=== PATIENT | male | born 1975 | race Caucasian/White ===

== ENCOUNTER 2016-08-21 17:09 | Inpatient (IN) | payer OTHER ==
[~2016-08-21] VITALS: Ht 180.3 cm; Wt 67.6 kg
[2016-08-21 17:10] VITALS: BP 94/69; PULSE 86; RESP 19; TEMP 96.9; O2SAT 97
--- NOTE | 2016-08-21 17:10 | NUR ---
BROUGHT IN BY ACLS JOS Singh AND NETTA CHILD, PLACED IN BED #1 AND TRIAGED. REPORT GIVEN TO MAHESH. DR ESCUDERO AT BEDSIDE UPON ARRIVAL
--- NOTE | 2016-08-21 17:10 | NUR ---
PER MEDICS, PT HAD A SEIZURE AT HOME AND WAS TAKEN TO [facility], WORKED-UP, AND RELEASED. PT WENT HOME AND HAD SEIZURE IN SHOWER, [facility] PT IS POST ICTAL AND ACTIVELY VOMITING
[2016-08-21] MEDS ORDERED: LORazepam 2 MG/ML VIAL IVP ONE (17:15)
--- NOTE | 2016-08-21 17:15 | NUR ---
ER at bedside examining patient.
--- NOTE | 2016-08-21 17:16 | NUR ---
Pt bib CF c/o seizure activity, pt has vomiting. IV established by CF was pulled out by pt. Pt h/o seizures. Pt AAOx2 . will reestablish IV accesss for medication.
--- NOTE | 2016-08-21 17:18 | NUR ---
# 20 gauge angiocath placed to L hand. Use of asceptic technique. Opsite placed over site. Blood return noted. Flushed with 10 cc of normal saline. No evidence of infiltration noted. Patient tolerated well.
[2016-08-21] MEDS ORDERED: ONDANSETRON HCL 4 MG/2 ML VIAL IVP ONE (17:30)
[2016-08-21] MEDS ORDERED: NACL 0.9% 1,000 ML IV ONE (17:30)
--- NOTE | 2016-08-21 17:30 | NUR ---
Pt tolerated medication for seizure and n/v. Pt tolerated well.
[2016-08-21] MEDS ORDERED: LORazepam 2 MG/ML VIAL (FOR ER USE) ONE (17:33)
[2016-08-21 18:16] LABS: BASOPHILS # (AUTO) 0.1 K/uL (0.0-0.2); BASOPHILS % (AUTO) 0.6 % (0.0-2.0); EOSINOPHILS % (AUTO) 0.3 % (0.0-4.0); HEMATOCRIT 42.6 % (36-54); LYMPHOCYTES # (AUTO) 1.5 K/uL (1.0-5.5); LYMPHOCYTES % (AUTO) 11.7 % (20.5-51.5); MEAN CORPUSCULAR HEMOGLOBIN 31 pg (27-31); MEAN CORPUSCULAR HGB CONC 33 % (32-36); MEAN CORPUSCULAR VOLUME 94 fL (79.0-98.0); MONOCYTES # (AUTO) 0.4 K/uL (0.0-1.0); MONOCYTES % (AUTO) 2.8 % (1.7-9.3); NEUTROPHILS # (AUTO) 11.1 K/uL (1.8-7.7); NEUTROPHILS % (AUTO) 84.6 % (40.0-70.0); PLATELET COUNT (AUTO) 208 K/uL (130-430); RED BLOOD CELL COUNT(AUTO) 4.52 MIL/uL (4.2-6.2); RED CELL DISTRIBUTION WIDTH 12.8 % (9.0-15.0); WHITE BLOOD COUNT (AUTO) 13.1 K/uL (4.8-10.8)
--- NOTE | 2016-08-21 18:30 | NUR ---
No seizure activity noted. Pt's nausea and vomiting resolving. Continuing to monitor.
[2016-08-21 18:48] LABS: ANION GAP 12 (5-15); CALCIUM 9.1 mg/dL (8.4-11.0); CHLORIDE 103 mmol/L (98-107); GLUCOSE 138 mg/dL (70-99); SODIUM SERUM 140 mmol/L (136-145); UREA NITROGEN, BLOOD 14 mg/dL (8-21)
[2016-08-21 18:52] LABS: ALANINE AMINOTRANSFERASE 15 U/L (12-78); ALBUMIN 4.2 g/dL (3.4-4.8); ASPARTATE AMINOTRANSFERASE 17 U/L (10-37); GFR AFRICAN AMERICAN 86 mL/min (>90); SALICYLATE 2 mg/dL (3-30); TOTAL BILIRUBIN 0.4 mg/dL (0.0-1.0); TOTAL PROTEIN, SERUM 7.6 g/dL (6.4-8.3)
[2016-08-21 18:59] LABS: ACETAMINOPHEN < 1 ug/mL (1-30)
[2016-08-21 19:00] LABS: ALCOHOL, BLOOD < 3 mg/dL (<10)
[2016-08-21] MEDS ORDERED: LEVOFLOXACIN 500 MG/D5W 100 ML IV ONE (19:00)
[2016-08-21] MEDS ORDERED: metroNIDAZOLE 500 mg/NS 100 ML IV ONE ×2 (19:00→21:29)
--- NOTE | 2016-08-21 19:10 | NUR ---
Pt continues to have no seziure activity.
--- NOTE | 2016-08-21 19:12 | NUR ---
Pt endorsed to Boubacar KENDRICK.
--- NOTE | 2016-08-21 19:20 | NUR ---
Pt is sleeping in his bed. Pt states he is in no pain. Will continue to monitor. No other injuries or complaints mentioned/noted. VSS. No distress noted.
--- NOTE | 2016-08-21 20:07 | NUR ---
Niranjan schaefer in EDM - 08/21/16 at 2008 by YOBANI Patient will be admitted to care of Dr Wharton . Admitted to [facility] unit. Will go to room 135. . Summary report printed. Report given to Guera KENDRICK .
--- NOTE | 2016-08-21 20:14 | NUR ---
ADMISSION NOTE Received patient from ER via gurney. Patient admitted with diagnosis of colitis. Patient is awake, alert, oriented X 4. Patient oriented to hospital room, call light, toileting, pain management and safety-teach back done. Patient informed that melody will be his nurse and that their room number is 106a. Personal belongings checked and Belongings List documented. Call light within reach.
[2016-08-21 20:15] VITALS: BP 109/67; PULSE 90; RESP 20; TEMP 98; O2SAT 98
[2016-08-21] MEDS ORDERED: LORazepam 2 MG/ML VIAL IM PRN (20:15)
[2016-08-21] MEDS ORDERED: MORPHINE 2 MG/ML INJ. SYRINGE IVP PRN (20:15)
[2016-08-21] MEDS ORDERED: ACETAMINOPHEN 325 MG TABLET PO PRN (20:15)
--- NOTE | 2016-08-21 20:32 | NUR ---
CONSULTATION PAGED REASON FOR CONSULTATION:SEIZURES WAS CONSULT CALLED?Y PERSON WHO WAS NOTIFIED:RADHA CONSULTING PHYSICIAN:SHEELA ASTUDILLO CORRECTIONAL CORPORAL SPECIALTY:GI CORRECTIONAL CORPORAL PHONE NUMBER:[phone]
--- NOTE | 2016-08-21 20:34 | NUR ---
CONSULTATION PAGED REASON FOR CONSULTATION:SEIZURES WAS CONSULT CALLED?Y PERSON WHO WAS NOTIFIED:RADHA CONSULTING PHYSICIAN:BERNADETTE MITCHELL HOUSING MANAGEMENT OFFICER SPECIALTY:NEURO HOUSING MANAGEMENT OFFICER PHONE NUMBER:[phone]
[2016-08-21] MEDS: levETIRAcetam 500 MG in NS 100 ML IV SCH (21:59)
--- NOTE | 2016-08-21 22:00 | NUR ---
Rounds Patient is in stable condition. IV is on the left hand 20g running D5NS@100ml/he. Seizure pads are in place. Call light is within reach. Advised patient to use it whenever in need of assistance.
[2016-08-21] MEDS: D5NS 1,000 ML IV SCH (22:04)
--- NOTE | 2016-08-21 22:13 | NUR ---
Spoke with MD Spoke with Dr. Christy regarding diet order. MD stated to keep patient NPO until CT abdomen results are in and neuro consult has see the patient. Explained to the patient the reason why he is NPO. Patient verbalized understanding.
[2016-08-21 23:30] VITALS: BP 113/57; PULSE 92; RESP 17; TEMP 98.7; O2SAT 98
[2016-08-22] VITALS (9 sets, daily range): BP systolic 101–113; BP diastolic 53–69; PULSE 74–88; RESP 14–20; TEMP 97–99.5; O2SAT 92–100
--- NOTE | 2016-08-22 00:20 | NUR ---
Rounds patient is currently resting in bed. New IV started the right hand 22g, Patient tolerated well.
--- NOTE | 2016-08-22 02:30 | NUR ---
Rounds Patient is currently sleeping in bed. Call light is within reach.
--- NOTE | 2016-08-22 04:20 | NUR ---
Rounds Patient is sleeping in bed. New IV site started on the left hand 22g using aseptic technique. Patient tolerated well.
[2016-08-22] MEDS: metroNIDAZOLE 500 mg/NS 100 ML IV SCH ×3 (05:14→21:17)
--- NOTE | 2016-08-22 06:13 | NUR ---
Closing Note patient is currently sleeping in bed. IV is on the left hand 22g running D5NS@100. GI and neuro consults are still pending to see the patient. Will endorse the oncoming shift. Seizure pads are in place. Bed alarm is on. Call light is within reach.
--- NOTE | 2016-08-22 07:00 | NUR ---
HANDOFF ROUNDS. PATIENT NEEDS MET AT THIS TIME. REQUEST FROM [facility] NURSE FOR DIET ORDER PATIENT SIGNED AMA IN PAST WITHOUT DIET ORDER.
--- NOTE | 2016-08-22 09:00 | NUR ---
PATIENT NOTIFIED KEPPRA IV UP AT THIS TIME TO PREVENT SEIZURES. VERBALIZES UNDERSTANDING. ROOMATE IS SEATED IN CHAIR NEXT TO PATIENT EATING HAMBURGER AND TAMAZIGHT FRIES.
--- NOTE | 2016-08-22 09:06 | NUR ---
CONSULTS CONSULT #1: GI CONSULT Spoke with Latonia regarding request for consultation with Dr. Garay ([phone]) for reason: abdominal pain. CONSULT #2: NEURO CONSULT Spoke with Lorenza regarding request for consultation with Dr. Wilson ([phone]) for reason: seizures.
--- NOTE | 2016-08-22 10:00 | NUR ---
PATIENT ROUNDS. HAND OVER HEAD WITH BLANKET COVERING FACE. DOES NOT RESPOND TO CURRENT QUESTIONS. WILL CONTINUE TO MONITOR FOR NEEDS.
--- NOTE | 2016-08-22 12:45 | NUR ---
CALL TO DOCTOR PAYNE SERVICE FOR DIET ORDER PATIENT CT AND XRAY ARE POSITIVE FOR KIDNEY STONE AND STOOL. SPOUSE SAYS HE WILL LIKELY GO AMA.
--- NOTE | 2016-08-22 13:05 | NUR ---
CALL TO DOCTOR SHORTY ANSWERING SERVICE PATIENT SPOUSE DISCUSSING PATIENT LEAVING AMA. REQUESTS DIET ORDER.
[2016-08-22] MEDS: HYDROmorphone 1 MG INJ. 1 MG/ML AMPUL IVP PRN ×2 (13:27→18:57)
--- NOTE | 2016-08-22 14:04 | NUR ---
GIVEN PRN DILAUDED FOR BACK PAIN. SAYS HE FELL YESTERDAY IN BATHROOM WHEN A SEIZURE OCCURRED PRIOR TO ARRIVING IN [facility] ER.
[2016-08-22] MEDS: D5NS 1,000 ML IV SCH (14:40)
[2016-08-22] MEDS: levETIRAcetam 500 MG in NS 100 ML IV SCH (14:40)
[2016-08-22] MEDS: ONDANSETRON HCL 4 MG/2 ML VIAL IVP PRN (14:44)
[2016-08-22] MEDS: LEVOFLOXACIN 500 MG/D5W 100 ML IV SCH (20:00)
--- NOTE | 2016-08-22 20:00 | NUR ---
opening note received patient resting in bed. abd pain noted. pt says doesn't want pain med because pain med doesn't work for stomach. side rails padded for seizure precautions. iv to left hand d5ns @ 100ml/h. comm board updated. poc discussed. pt not happy with comm between doctors. say one doctor tells one thin and another tells him another. re-assured pt re: pt's primary and gi doctors poc.
[2016-08-22] MEDS: LACTOBACILLUS RHAMNOSUS GG 1 CAP CAPSULE PO SCH (21:00)
[2016-08-22] MEDS: levETIRAcetam 500 MG TABLET PO SCH (21:11)
--- NOTE | 2016-08-22 21:20 | NUR ---
PT REFUSING IV ANTIBIOTICS SAYS THE DOCTORS NEED TO COMMUNICATE WITH EACH OTHER BECAUSE GI DR SAID HE DOESN'T KNOW WHY HE IS ON IV ANTIBIOTICS-ACCORDING TO PT. PT HAS LEFT SIDE PAIN BUT SAYS PAIN MEDICATION DOESN'T WORK FOR IT. OFFERED PAIN MED BUT SAYS IT ONLY WORKS FOR BACK AND HIS BACK IS FINE.
[2016-08-23 00:27] VITALS: BP 126/82; PULSE 78; RESP 18; TEMP 98.4; O2SAT 97
[2016-08-23] MEDS: ONDANSETRON HCL 4 MG/2 ML VIAL IVP PRN ×3 (00:57→20:06)
[2016-08-23] MEDS: D5NS 1,000 ML IV SCH ×3 (01:06→21:32)
--- NOTE | 2016-08-23 01:08 | NUR ---
nausea pt given zofran as ordered for nausea. will continue to monitor and reassess.
[2016-08-23] MEDS: HYDROmorphone 1 MG INJ. 1 MG/ML AMPUL IVP PRN ×4 (02:05→21:31)
--- NOTE | 2016-08-23 02:08 | NUR ---
pain pt given pain med for 810 left side abdominal pain. pt educated on fall risks. call light at side. will reassess and continue to monitor.
--- NOTE | 2016-08-23 02:19 | NUR ---
rounds pt not tolerating liquids. nausea medication has been given.
--- NOTE | 2016-08-23 04:30 | NUR ---
ROUNDS PATIENT APPEARS TO BE SLEEPING. RESPIRATIONS EVEN AND UNLABORED. NO MOANING OR FACIAL GRIMACING NOTED FOR PAIN. WILL CONTINUE TO MONITOR.
[2016-08-23 04:35] VITALS: BP 118/76; PULSE 68; RESP 18; TEMP 98.2; O2SAT 97
--- NOTE | 2016-08-23 08:00 | NUR ---
RECEIVED PATIENT ALERT AWAKE N/V 30CC BROWN EMESIS, COMPLAINT OF PAIN 8/10 ON LEFT SIDE OF ABDOMEN GAVE DILAUDID PRESCRIBED, PATIENT LYING ON LEFT SIDE, ABDOMEN SOFT NONDISTENDED, SPOKE WITH ON PHONE ABOUT CARE, PATIENT BED IN LOW POSITION CALL LIGHT IN APLCE SIDE RAILS UP
[2016-08-23] MEDS: levETIRAcetam 500 MG TABLET PO SCH ×2 (08:21→21:25)
[2016-08-23] MEDS: LACTOBACILLUS RHAMNOSUS GG 1 CAP CAPSULE PO SCH ×2 (08:21→21:25)
--- NOTE | 2016-08-23 11:30 | NUR ---
PATIENT ALERT AND ORIENTED X 4, COMPLAINT OF PAIN 4/10 WITH SMALL AMOUNT OF EMESIS IN [place], GAVE ZOFRAN PRESCRIBED, INFORMED DR GOMEZ THAT PATIENT STILL IN PAIN AND NAUSEATED, DR GOMEZ ORDERED A KUB OF ABDOMEN, CONSULT FOR ABDOMEN AND BLOOD APNEL DRAW, CURRENTYLY PATIENT LYING ON LEFT SIDE SUPINE, BED IN LOW POSITION CALL LIGHT IN APCKLE SIDE RAILS UP
[2016-08-23] MEDS: LORazepam 2 MG/ML VIAL IVP PRN ×2 (11:45→20:06)
[2016-08-23 11:56] LABS: BASOPHILS % (AUTO) 0.4 % (0.0-2.0); EOSINOPHILS % (AUTO) 0.4 % (0.0-4.0); HEMATOCRIT 40.4 % (36-54); HEMOGLOBIN 13.7 g/dL (14.0-18.0); LYMPHOCYTES # (AUTO) 1.5 K/uL (1.0-5.5); LYMPHOCYTES % (AUTO) 13.5 % (20.5-51.5); MEAN CORPUSCULAR HEMOGLOBIN 32 pg (27-31); MEAN CORPUSCULAR HGB CONC 34 % (32-36); MEAN CORPUSCULAR VOLUME 93 fL (79.0-98.0); MONOCYTES # (AUTO) 0.7 K/uL (0.0-1.0); MONOCYTES % (AUTO) 6.2 % (1.7-9.3); NEUTROPHILS # (AUTO) 9.1 K/uL (1.8-7.7); NEUTROPHILS % (AUTO) 79.5 % (40.0-70.0); PLATELET COUNT (AUTO) 194 K/uL (130-430); RED BLOOD CELL COUNT(AUTO) 4.34 MIL/uL (4.2-6.2); RED CELL DISTRIBUTION WIDTH 12.2 % (9.0-15.0); WHITE BLOOD COUNT (AUTO) 11.3 K/uL (4.8-10.8)
[2016-08-23 12:03] LABS: CALCIUM 8.8 mg/dL (8.4-11.0); CREATININE 0.91 mg/dL (0.55-1.30); POTASSIUM 3.3 mmol/L (3.5-5.1)
[2016-08-23 12:08] LABS: ALBUMIN 4.1 g/dL (3.4-4.8); TOTAL BILIRUBIN 0.9 mg/dL (0.0-1.0); TOTAL PROTEIN, SERUM 7.3 g/dL (6.4-8.3)
[2016-08-23 12:12] VITALS: BP 113/72; PULSE 89; RESP 18; TEMP 97.9; O2SAT 99
--- NOTE | 2016-08-23 12:56 | NUR ---
surgery consult spoke to Genaro, office of Dr. Lloyd and made aware of consult.
[2016-08-23] MEDS: metroNIDAZOLE 500 mg/NS 100 ML IV SCH ×2 (14:45→21:26)
--- NOTE | 2016-08-23 14:50 | NUR ---
CONSULT CALLED REASON FOR CONSULTATION: ABDOMINAL PAIN WAS CONSULT CALLED: Y PERSON WHO WAS NOTIFIED: SELENA CONSULTING PHYSICIAN; SHAYNA GARCIA MD ORDER BY: CHELSEY GOMEZ MD
[2016-08-23] MEDS ORDERED: POTASSIUM CHLORIDE 20 MEQ TAB.PRT.SR PO ONE (15:30)
[2016-08-23 16:51] VITALS: BP 109/62; PULSE 59; RESP 16; TEMP 98.2; O2SAT 99
--- NOTE | 2016-08-23 17:23 | NUR ---
PATIENT SLEEPING EASILY AROUSABLE, NOS IGN OF DISTRESS OR SOB, PATIENT WANTS TO SLEEP, CLOSED DOOR FOR TO HELP WITH NOISE, LYING SUPINE BED IN LOW POSITION CALL LIGHT IN APLCE SIDE RAILS UP, GAVE POTASSIUM 40MEQ PRESCRIBED FOR K+ 3.3
--- NOTE | 2016-08-23 19:35 | NUR ---
INITIAL ASSESSMENT: RECEIVE PT IN BED, PATIENT ALERT AND ORIENTED X 4, COMPLAINT OF PAIN 4/10 WITH SMALL AMOUNT OF EMESIS IN [place], DENIES ANY DISTRESS, PT ON ROOM AIR, VITAL STABLE, CHEST CLEAR, ABDOMEN SOFT AND NON DISTENDED, ACTIVE BOWEL SOUND THROUGHOUT ABDOMEN, PT HAS IV ON LEFT HAND 20 G, INFUSING D5NS@ 100 CC/HR, INFUSING WELL, NO INFILTRATION NOTED, PATIENT LYING ON LEFT SIDE , BED IN LOW POSITION CALL LIGHT IN REACH, PADDED SIDE RAIL. ALL NEEDS ATTENDED, WILL CONTINUE TO MONITOR.
[2016-08-23 20:00] VITALS: BP 112/67; PULSE 57; RESP 16; TEMP 98.3; O2SAT 98
[2016-08-23] MEDS: LEVOFLOXACIN 500 MG/D5W 100 ML IV SCH (20:07)
--- NOTE | 2016-08-23 20:10 | NUR ---
ATIVAN, ZOFRAN: PATIENT ALERT AND ORIENTED X 4, COMPLAINT OF PAIN 4/10 WITH SMALL AMOUNT OF EMESIS IN [place], C/O ANXIETY AND CRYING ON SIDE OF BED, VOMITING, ADMINISTERED ATIVAN 1 MG IVP AND ZOFRAN IVP FOR NAUSEA, WILL REASSESS. PT ON ROOM AIR, VITAL STABLE, CHEST CLEAR, BREATHING EVEN AND NON LABORED WITH ROOM AIR, PT HAS IV ON LEFT HAND 20 G, INFUSING D5NS@ 100 CC/HR, INFUSING WELL, NO INFILTRATION NOTED, PADDED SIDE RAIL. ALL NEEDS ATTENDED, CALL LIGHT WITH IN REACH, WILL CONTINUE TO MONITOR.
--- NOTE | 2016-08-23 21:31 | NUR ---
DILAUDID: PATIENT ALERT AND ORIENTED X 4, COMPLAINT OF PAIN 7/10 WITH SMALL AMOUNT OF EMESIS IN [place], ADMINISTERED DILAUDID 1 MG IVP, WILL REASSESS. EDUCATED PT TO NOT TO GET OUT OF BED WITH OUT NURSE THERE, ADMINISTERED ALL SCHEDULE MEDICATION, PT ON ROOM AIR, VITAL STABLE, CHEST CLEAR, BREATHING EVEN AND NON LABORED WITH ROOM AIR, PT HAS IV ON LEFT HAND 20 G, INFUSING D5NS@ 100 CC/HR, INFUSING WELL, NO INFILTRATION NOTED, PADDED SIDE RAIL. ALL NEEDS ATTENDED, CALL LIGHT WITH IN REACH, WILL CONTINUE TO MONITOR.
--- NOTE | 2016-08-23 23:31 | NUR ---
PT SLEEPING: PT SLEEPING, EASILY AWAKE, NO NOTED PAIN AND DISTRESS, PT ON ROOM AIR, VITAL STABLE, CHEST CLEAR, BREATHING EVEN AND NON LABORED WITH ROOM AIR, PT HAS IV ON LEFT HAND 20 G, INFUSING D5NS@ 100 CC/HR, INFUSING WELL, NO INFILTRATION NOTED, PADDED SIDE RAIL. NO SEIZURE ACTIVITY SINCE HOSPITALIZATION. ALL NEEDS ATTENDED, CALL LIGHT WITH IN REACH, WILL CONTINUE TO MONITOR.
[2016-08-24] VITALS (9 sets, daily range): BP systolic 107–135; BP diastolic 67–78; PULSE 58–80; RESP 16–18; TEMP 96.9–99.3; O2SAT 93–100
[2016-08-24] MEDS: LORazepam 2 MG/ML VIAL IVP PRN ×3 (01:46→18:20)
[2016-08-24] MEDS: ONDANSETRON HCL 4 MG/2 ML VIAL IVP PRN ×4 (01:46→20:22)
[2016-08-24] MEDS: HYDROmorphone 1 MG INJ. 1 MG/ML AMPUL IVP PRN ×4 (01:47→20:23)
--- NOTE | 2016-08-24 01:48 | NUR ---
PT C/O PAIN 8/10 ON LEFT ABDOMEN, ADMINISTERED DILAUDID 1 MG IVP, VERY ANXIOUS AND AGITATED AND CRYING, ADMINISTERED ATIVAN 1 MG IVP AND ZOFRAN IVP FOR NAUSEA AND VOVITING, I=VF INFUSING WELL, VITAL STABLE, ALL NEEDS ATTENDED, SAFETY EDUCATION DONE, BED ALARM ON, CALL LIGHT WITH IN REACH, WILL CONTINUE TO MONITOR.
[2016-08-24] MEDS: metroNIDAZOLE 500 mg/NS 100 ML IV SCH ×3 (05:41→23:12)
--- NOTE | 2016-08-24 06:39 | NUR ---
CLOSING NOTE: PT SLEEPING, EASILY AWAKE, NO NOTED PAIN AND DISTRESS, PT ON ROOM AIR, VITAL STABLE, CHEST CLEAR, BREATHING EVEN AND NON LABORED WITH ROOM AIR, PT HAS IV ON LEFT HAND 20 G, INFUSING D5NS@ 100 CC/HR, INFUSING WELL, NO INFILTRATION NOTED, PADDED SIDE RAIL. NO SEIZURE ACTIVITY SINCE HOSPITALIZATION. ALL NEEDS ATTENDED THROUGHOUT SHIFT, CALL LIGHT WITH IN REACH, WILL ENDORSE TO AM NURSE.
[2016-08-24 07:41] LABS: ALBUMIN 3.7 g/dL (3.4-4.8); CALCIUM 8.5 mg/dL (8.4-11.0); CREATININE 0.92 mg/dL (0.55-1.30); POTASSIUM 3.6 mmol/L (3.5-5.1); TOTAL PROTEIN, SERUM 6.5 g/dL (6.4-8.3)
--- NOTE | 2016-08-24 08:00 | NUR ---
0800 Medicated with Dilaudid 2 mg IVP for abdominal pain, patient still nauseated Zofran given as scheduled.
[2016-08-24 08:09] LABS: BASOPHILS % (AUTO) 0.3 % (0.0-2.0); EOSINOPHILS # (AUTO) 0.1 K/uL (0.0-0.4); EOSINOPHILS % (AUTO) 0.8 % (0.0-4.0); HEMATOCRIT 37.3 % (36-54); HEMOGLOBIN 12.6 g/dL (14.0-18.0); LYMPHOCYTES # (AUTO) 2.5 K/uL (1.0-5.5); LYMPHOCYTES % (AUTO) 22.3 % (20.5-51.5); MEAN CORPUSCULAR HEMOGLOBIN 32 pg (27-31); MEAN CORPUSCULAR HGB CONC 34 % (32-36); MONOCYTES # (AUTO) 0.7 K/uL (0.0-1.0); MONOCYTES % (AUTO) 6.4 % (1.7-9.3); NEUTROPHILS # (AUTO) 7.8 K/uL (1.8-7.7); NEUTROPHILS % (AUTO) 70.2 % (40.0-70.0); PLATELET COUNT (AUTO) 175 K/uL (130-430); RED BLOOD CELL COUNT(AUTO) 3.94 MIL/uL (4.2-6.2); RED CELL DISTRIBUTION WIDTH 12.4 % (9.0-15.0); WHITE BLOOD COUNT (AUTO) 11.1 K/uL (4.8-10.8)
[2016-08-24] MEDS ORDERED: NACL 0.9% 1,000 ML IV ONE (08:15)
[2016-08-24 08:31] LABS: MEAN CORPUSCULAR VOLUME 95 fL (79.0-98.0)
[2016-08-24] MEDS: levETIRAcetam 500 MG TABLET PO SCH (09:39)
[2016-08-24] MEDS: LACTOBACILLUS RHAMNOSUS GG 1 CAP CAPSULE PO SCH ×2 (09:39→20:23)
--- NOTE | 2016-08-24 09:45 | NUR ---
Called Dr. Rossi for medication question (Reglan)
[2016-08-24] MEDS ORDERED: METOCLOPRAMIDE HCL 10 MG/2 ML VIAL IVP SCH (11:00)
--- NOTE | 2016-08-24 12:35 | NUR ---
Patient given Reglan IVP to control Nausea and vomiting in addition to ZOFRAN .
[2016-08-24] MEDS: METOCLOPRAMIDE HCL 10 MG/2 ML VIAL IVP PRN (12:39)
--- NOTE | 2016-08-24 13:51 | NUR ---
MD ROUNDS DR. DINERO HERE AND OKAYED TO CHANGED KEPPRA IV TO PO. PT STILL HAVING EPISODES OF VOMITING.
[2016-08-24] MEDS ORDERED: COMMUNICATION ORDER XX ONE (14:00)
--- NOTE | 2016-08-24 14:00 | NUR ---
Dr. robledo made aware that patient requesting for IV Keppra due to frequent vomiting and nausea. Dose chaged to IVPB same dosage.
--- NOTE | 2016-08-24 14:34 | NUR ---
Medicated with Ativan 1 mg IVP for anxiety.
--- NOTE | 2016-08-24 16:29 | NUR ---
Patient complaining that he feels like passing out,BP taken 124/72 HR-78. Patient feeling hungry snacks given jello , apple sauce and gideon crackers given.
--- NOTE | 2016-08-24 18:00 | NUR ---
Patient at bedside . Patient resting in bed.
--- NOTE | 2016-08-24 20:00 | NUR ---
Initial Notes Received patient resting in bed, awake, alert, oriented, at bedside. Patient denies any acute distress. Vital signs stable. Breathing even and unlabored on room air. IV site to left hand, patent/clean/dry. Seizure precautions in place. Needs addressed. Educated patient and family on use of call light for assistance and fall precautions, both verbalized understanding. Patient complains of nausea and abdominal pain, medicated per MD order. Call light in hand, will continue to monitor.
[2016-08-24] MEDS: LEVOFLOXACIN 500 MG/D5W 100 ML IV SCH (20:22)
[2016-08-24] MEDS: levETIRAcetam 1,500 MG in NS 100 ML IV SCH (21:39)
--- NOTE | 2016-08-24 22:00 | NUR ---
Rounds Patient resting in bed with eyes closed, easily aroused, at bedside. Patient denies any acute distress or pain at this time. Breathing even and unlabored. IV site patent/clean/dry. Needs addressed. Call light in hand, will continue to monitor.
[2016-08-24] MEDS: D5NS 1,000 ML IV SCH (23:17)
--- NOTE | 2016-08-25 | NUR ---
Rounds Patient resting in bed, awake. Patient denies any acute distress or pain at this time. Breathing even and unlabored. IV site patent/clean/dry. Patient denies any needs. Call light in hand, will continue to monitor.
[2016-08-25] MEDS: METOCLOPRAMIDE HCL 10 MG/2 ML VIAL IVP PRN ×2 (00:28→21:40)
[2016-08-25] MEDS: HYDROmorphone 1 MG INJ. 1 MG/ML AMPUL IVP PRN ×4 (00:29→21:49)
[2016-08-25 00:31] VITALS: BP 118/67; PULSE 75; RESP 20; TEMP 97.8; O2SAT 95
[2016-08-25 03:49] VITALS: BP 127/79; PULSE 75; RESP 18; TEMP 99.4; O2SAT 97
--- NOTE | 2016-08-25 04:00 | NUR ---
Rounds Patient resting in bed with eyes closed. No acute distress noted, breathing even and unlabored. IV site patent/clean/dry. Call light in hand, will continue to monitor.
[2016-08-25] MEDS: ONDANSETRON HCL 4 MG/2 ML VIAL IVP PRN (04:35)
[2016-08-25] MEDS: metroNIDAZOLE 500 mg/NS 100 ML IV SCH ×3 (05:01→22:33)
--- NOTE | 2016-08-25 06:43 | NUR ---
Closing Notes Patient resting in bed with eyes closed, easily aroused. Denies any acute distress or pain at this time. Breathing even and unlabored on room air. IV site patent/clean/dry, no S/S infection/infiltration noted. Needs addressed throughout shift. Call light in hand, fall precautions in place. Will continue to monitor for changes and safety, and endorse all patient care/needs to oncoming nurse.
[2016-08-25 07:05] LABS: BASOPHILS # (AUTO) 0.1 K/uL (0.0-0.2); BASOPHILS % (AUTO) 1.4 % (0.0-2.0); EOSINOPHILS # (AUTO) 0.1 K/uL (0.0-0.4); EOSINOPHILS % (AUTO) 1.4 % (0.0-4.0); HEMATOCRIT 35.3 % (36-54); HEMOGLOBIN 12.4 g/dL (14.0-18.0); LYMPHOCYTES # (AUTO) 1.6 K/uL (1.0-5.5); LYMPHOCYTES % (AUTO) 21.9 % (20.5-51.5); MEAN CORPUSCULAR HEMOGLOBIN 32 pg (27-31); MEAN CORPUSCULAR HGB CONC 35 % (32-36); MEAN CORPUSCULAR VOLUME 92 fL (79.0-98.0); MONOCYTES # (AUTO) 0.7 K/uL (0.0-1.0); MONOCYTES % (AUTO) 8.9 % (1.7-9.3); NEUTROPHILS % (AUTO) 66.4 % (40.0-70.0); PLATELET COUNT (AUTO) 172 K/uL (130-430); RED BLOOD CELL COUNT(AUTO) 3.82 MIL/uL (4.2-6.2); RED CELL DISTRIBUTION WIDTH 11.9 % (9.0-15.0); WHITE BLOOD COUNT (AUTO) 7.5 K/uL (4.8-10.8)
[2016-08-25 07:14] LABS: ALBUMIN 3.5 g/dL (3.4-4.8); CALCIUM 8.3 mg/dL (8.4-11.0); CREATININE 0.95 mg/dL (0.55-1.30); POTASSIUM 3.7 mmol/L (3.5-5.1); TOTAL PROTEIN, SERUM 6.3 g/dL (6.4-8.3)
--- NOTE | 2016-08-25 07:59 | NUR ---
AM ROUNDS: Patient is complaining of pain. Will medicate as ordered. Will continue to monitor.
[2016-08-25 08:24] VITALS: BP 127/74; PULSE 76; RESP 20; TEMP 98.3; O2SAT 99
[2016-08-25] MEDS: LACTOBACILLUS RHAMNOSUS GG 1 CAP CAPSULE PO SCH ×2 (08:29→20:48)
[2016-08-25] MEDS: levETIRAcetam 1,500 MG in NS 100 ML IV SCH ×2 (08:29→20:48)
--- NOTE | 2016-08-25 09:52 | NUR ---
MD ROUNDS: Dr. Garay in to see patient.
--- NOTE | 2016-08-25 10:00 | NUR ---
OFF THE FLOOR: To GI Lab for EGD.
[2016-08-25] MEDS ORDERED: SIMETHICONE 40 MG/0.6 ML ML ONE (10:09)
[2016-08-25] MEDS: fentaNYL CITRATE/PF 100 MCG/2 ML AMP ONE ×4 (10:10→11:28)
[2016-08-25] MEDS: MIDAZOLAM HCL 5 MG/5 ML VIAL ONE ×4 (10:10→11:28)
[2016-08-25] MEDS: DIPHENHYDRAMINE INJ 50 MG/ML VIAL ONE ×2 (10:13→11:28)
[2016-08-25] MEDS ORDERED: MIDAZOLAM HCL 5 MG/5 ML VIAL ONE (10:16)
[2016-08-25] MEDS ORDERED: PANTOPRAZOLE SODIUM 40 MG TAB PO ONE (11:00)
--- NOTE | 2016-08-25 11:15 | NUR ---
PATIENT RETURNED: From GI Lab.
[2016-08-25 12:00] VITALS: BP 127/81; PULSE 74; RESP 20; TEMP 98.6; O2SAT 96
--- NOTE | 2016-08-25 12:52 | NUR ---
PATIENT RESTING: Patient resting quietly. No acute distress noted. Vital signs within normal range.
[2016-08-25] MEDS: D5NS 1,000 ML IV SCH (13:37)
[2016-08-25 16:00] VITALS: BP 131/72; PULSE 80; RESP 20; TEMP 98.8; O2SAT 98
--- NOTE | 2016-08-25 16:11 | NUR ---
PATIENT RESTING: Patient resting quietly. No acute distress noted. Vital signs within normal range.
--- NOTE | 2016-08-25 18:21 | NUR ---
PAGED: Dr. Rossi paged. Patient is demanding diet change.
--- NOTE | 2016-08-25 18:41 | NUR ---
PATIENT REFUSED MEAL: Dr. Rossi called back, ordered full liquid diet. Patient refused meal.
--- NOTE | 2016-08-25 20:03 | NUR ---
Opening Note Report received from Gamal KENDRICK. Patient is in stable condition. Refused to eat dinner. Will follow up with MD to advance diet. IV is on the left hand 22g running D5NS@100. Call light is within reach. Instructed to use it whenever in need of assistance. Seizure pads are in place.
[2016-08-25 20:30] VITALS: BP 128/75; PULSE 72; RESP 18; TEMP 99.2
[2016-08-25] MEDS: LEVOFLOXACIN 500 MG/D5W 100 ML IV SCH (20:47)
--- NOTE | 2016-08-25 22:03 | NUR ---
Spoke with MD Spoke with Dr. Christy. Explained to MD that patient is very upset regarding current diet order. Orders received to advance diet to soft.
[2016-08-26] VITALS: BP 105/61; PULSE 71; RESP 17; TEMP 98.3; O2SAT 95
--- NOTE | 2016-08-26 00:03 | NUR ---
Rounds Patient was complaining of abdominal pain. Medicated with Dilaudid 1mg. Also medicated with Reglan. Will reassess.
--- NOTE | 2016-08-26 02:15 | NUR ---
Rounds Patient is currently resting in bed. Call light is within reach.
[2016-08-26] MEDS: HYDROmorphone 1 MG INJ. 1 MG/ML AMPUL IVP PRN ×3 (03:21→12:14)
[2016-08-26 04:00] VITALS: BP 113/60; PULSE 70; RESP 17; TEMP 97.4; O2SAT 96
[2016-08-26] MEDS: ONDANSETRON HCL 4 MG/2 ML VIAL IVP PRN ×2 (04:06→12:14)
[2016-08-26] MEDS: D5NS 1,000 ML IV SCH (04:07)
--- NOTE | 2016-08-26 04:40 | NUR ---
Rounds Patient is currently resting in bed. Call light is within reach.
[2016-08-26] MEDS: metroNIDAZOLE 500 mg/NS 100 ML IV SCH ×2 (05:33→14:02)
--- NOTE | 2016-08-26 06:45 | NUR ---
Closing Note Patient is currently resting in bed. IV is on the left hand 22g running D5NS@100ml/hr. Call light is within reach. Seizure pads are on. Instructed to call for help whenever in need of assistance. Will give report to the oncoming nurse.
--- NOTE | 2016-08-26 07:45 | NUR ---
AM Notes Pt aaox4 with complaints of abdominal pain and nauseated. No distress noted. Informed RN for medication administration. No signs of seizure activity noted. Fall and safety precautions enforced. Seizure precautions enforced with padded rails in place. Kept comfortable. Will monitor.
[2016-08-26] MEDS: levETIRAcetam 1,500 MG in NS 100 ML IV SCH (08:06)
[2016-08-26] MEDS: METOCLOPRAMIDE HCL 10 MG/2 ML VIAL IVP PRN (08:06)
[2016-08-26 08:20] VITALS: BP 111/61; PULSE 65; RESP 18; TEMP 98.2; O2SAT 93
[2016-08-26] MEDS ORDERED: PANTOPRAZOLE SODIUM 40 MG TAB PO SCH (09:00)
--- NOTE | 2016-08-26 09:00 | NUR ---
Rounds Pt asleep. No signs of facial grimacing for pain or discomfort. No distress noted. Call light within reach. Will monitor.
--- NOTE | 2016-08-26 09:36 | NUR ---
Nutrition Update Andrew Scale 18 noted. Pt admitted for colitis. Diet: soft (low fiber/bland) BMI: 20.8 kg/m2 RD to follow per nutrition care standards.
--- NOTE | 2016-08-26 10:15 | NUR ---
Dr. Flo TOVAR doing rounds. Plan of care discussed with patient.
[2016-08-26] MEDS: LACTOBACILLUS RHAMNOSUS GG 1 CAP CAPSULE PO SCH (11:00)
--- NOTE | 2016-08-26 12:00 | NUR ---
Rounds Pt complaints of abdominal pain and feels very nauseated. Informed RN for medication administration. Pt refused to eat lunch.
[2016-08-26 12:15] VITALS: BP 109/66; PULSE 62; RESP 20; TEMP 97.9; O2SAT 98
--- NOTE | 2016-08-26 13:39 | NUR ---
CALLED JOHN TOVAR, DR PAYNE RE: DISCHARGE OK FOR HOME. SPOKE TO RADHA
--- NOTE | 2016-08-26 14:00 | NUR ---
Rounds Pt asleep. No signs of facial grimacing for pain or discomfort. No distress noted.
--- NOTE | 2016-08-26 15:00 | NUR ---
Dr. Garay Called and spoke with MD if patient is cleared to be discharged home. MD wants to have colonoscopy done but to ask patient if he is able to drink Golytely and to call him back.
--- NOTE | 2016-08-26 15:15 | NUR ---
Spoke to patient Spoke to patient and informed about Dr. Garay's plan for colonoscopy and if able to drink Golytely. Patient states he cannot drink Golytely because he is still throwing up and will not be able to keep it down. Pt becoming frustrated and impatient.
--- NOTE | 2016-08-26 15:36 | NUR ---
CALLED GI MD DR PAYNE, RE: THROWS UP WITH [employer],. SPOKE TO TYLER
[2016-08-26 15:39] VITALS: BP 107/56; PULSE 76; RESP 16; TEMP 98.4; O2SAT 99
--- NOTE | 2016-08-26 16:00 | NUR ---
Dr. Garay Called and informed MD that patient is unable to drink Golytely because he might just throw up. MD ordered to have HIDA Scan and not to discharge patient because he is still experiencing abdominal pain. Will inform patient.
--- NOTE | 2016-08-26 16:30 | NUR ---
Agitated Pt became upset, agitated and screaming to the top of his voice about not cleared to be discharged and HIDA Scan ordered. Explained and educated patient that HIDA Scan can clearly visualize the liver, gallbladder and pancreas. Pt states he refused to have it done and wants to be discharged. Also states "Why does this procedure need to be done now while i have been here for a week?" Calming measures done but patient still agitated. Charge nurse, Randa went in to speak with patient but continues to be upset and agitated. Oven Heater, Skyler made aware of situation.
--- NOTE | 2016-08-26 18:20 | NUR ---
AMA Patient left Against Medical Advice. Signed form. D/C IV and dressing applied. Pt left floor via w/c to private vehicle. No distress noted.
== END 2016-08-26 18:20 | disposition left against medical advice (07) | DRG 101 ==
LOC: SED 17:09 → SMU 19:26
PROVIDERS: ADMIT Internal Medicine Hospice and Palliative Medicine; ATTEND Internal Medicine Hospice and Palliative Medicine
PROC: 0DB68ZX Excision of Stomach, Via Natural or Artificial Opening Endoscopic, Diagnostic (ICD-10-PCS; 2016-08-25)
PROC: 0DB98ZX Excision of Duodenum, Via Natural or Artificial Opening Endoscopic, Diagnostic (ICD-10-PCS; principal; 2016-08-25 10:30)
DX: G40.409 Other generalized epilepsy and epileptic syndromes, not intractable, without status epilepticus (principal); K29.70 Gastritis, unspecified, without bleeding; K52.9 Noninfective gastroenteritis and colitis, unspecified; J45.909 Unspecified asthma, uncomplicated; F12.90 Cannabis use, unspecified, uncomplicated; Z53.21 Procedure and treatment not carried out due to patient leaving prior to being seen by health care provider; Z88.5 Allergy status to narcotic agent; Z90.49 Acquired absence of other specified parts of digestive tract
CPT/HCPCS: 36415; 43239; 70450-TC; 71010; 74000-TC; 76700-TC; 80053; 83605; 83690-TC; 84484; 85025; 85610-TC; 85730-TC; 87040-TC; 87081; 88305; 88312; 88313; 93005; 96365; 96367; 96375; 99285; G0480; G0481; G0482; J1170; J1200; J1953; J1956; J2060; J2250; J2405; J2765; J3010; J3490; J7030; J7042

== ENCOUNTER 2017-06-01 11:44 | Emergency (ER) | payer OTHER, MEDICAID ==
[~2017-06-01] VITALS: Ht 177.8 cm; Wt 70.3 kg
--- NOTE | 2017-06-01 11:44 | NUR ---
Pt brought to bed 1 by ACLS for witnessed seizure in bathtub. Daughter called 911 when she saw pt having a seizure in bathtub. Pt is awake and alert at this time with some confussion, but able to answer questions and knows who he is. Seizure pads were placed on rails. No noted trauma or deformities noted, pt denies loss of consciousness or hitting head. No other injuries/complaints per pt or noted.
[2017-06-01 11:54] VITALS: BP_SYST 145
[2017-06-01] MEDS ORDERED: LORazepam 2 MG/ML VIAL (FOR ER USE) IVP ONE (12:15)
--- NOTE | 2017-06-01 12:15 | NUR ---
ER at bedside examining patient.
--- NOTE | 2017-06-01 12:32 | NUR ---
Medicated per MD orders. VSS, will continue to monitor
[2017-06-01] MEDS ORDERED: ESLI400T PO (12:36)
[2017-06-01] MEDS ORDERED: LEVE500T13 PO (12:36)
--- NOTE | 2017-06-01 12:37 | NUR ---
Medication reconciliation completed with information provided by PATIENT. Any prior medication reconciliation on file was reviewed and corrected.
[2017-06-01 12:54] LABS: BASOPHILS # (AUTO) 0.1 K/uL (0.0-0.2); BASOPHILS % (AUTO) 0.8 % (0.0-2.0); EOSINOPHILS # (AUTO) 0.2 K/uL (0.0-0.4); EOSINOPHILS % (AUTO) 2.7 % (0.0-4.0); HEMATOCRIT 41.8 % (36-54); HEMOGLOBIN 13.9 g/dL (14.0-18.0); LYMPHOCYTES # (AUTO) 1.6 K/uL (1.0-5.5); LYMPHOCYTES % (AUTO) 23.7 % (20.5-51.5); MEAN CORPUSCULAR HEMOGLOBIN 31 pg (27-31); MEAN CORPUSCULAR HGB CONC 33 % (32-36); MEAN CORPUSCULAR VOLUME 95 fL (79.0-98.0); MONOCYTES # (AUTO) 0.5 K/uL (0.0-1.0); MONOCYTES % (AUTO) 7.5 % (1.7-9.3); NEUTROPHILS # (AUTO) 4.4 K/uL (1.8-7.7); NEUTROPHILS % (AUTO) 65.3 % (40.0-70.0); PLATELET COUNT (AUTO) 201 K/uL (130-430); RED BLOOD CELL COUNT(AUTO) 4.43 MIL/uL (4.2-6.2); RED CELL DISTRIBUTION WIDTH 12.5 % (9.0-15.0); WHITE BLOOD COUNT (AUTO) 6.8 K/uL (4.8-10.8)
[2017-06-01 13:15] LABS: PROTHROMBIN TIME 10.2 SECS (9.5-12.5)
--- NOTE | 2017-06-01 13:30 | NUR ---
Report endorsed to Joyce KENDRICK
[2017-06-01 13:31] LABS: ANION GAP 4 (5-15); CALCIUM 9.2 mg/dL (8.4-11.0); CHLORIDE 101 mmol/L (98-107); CREATININE 0.87 mg/dL (0.55-1.30); GLUCOSE 108 mg/dL (70-99); POTASSIUM 4.1 mmol/L (3.5-5.1); SODIUM SERUM 136 mmol/L (136-145); UREA NITROGEN, BLOOD 14 mg/dL (8-21)
[2017-06-01 13:35] LABS: GFR AFRICAN AMERICAN 124 mL/min (>90)
[2017-06-01 13:47] LABS: ALANINE AMINOTRANSFERASE 18 U/L (12-78); ALBUMIN 4.3 g/dL (3.4-4.8); ASPARTATE AMINOTRANSFERASE 15 U/L (10-37); FREE T4 (FREE THYROXINE) 0.7 ng/dL (0.6-1.6); TOTAL BILIRUBIN 0.3 mg/dL (0.0-1.0)
[2017-06-01 13:49] LABS: ALCOHOL, BLOOD < 3 mg/dL (<10)
[2017-06-01 14:10] VITALS: BP_SYST 107
--- NOTE | 2017-06-01 14:10 | NUR ---
Patient given written and verbal discharge instructions and verbalizes understanding. ER MD discussed with patient the results and treatment provided. Patient in stable condition. ID arm band removed. IV catheter removed intact and dressing applied, no active bleeding. No Rx given. Patient educated on pain management and to follow up with PMD. Pain Scale 0. Opportunity for questions provided and answered. Pt was picked up by [facility] [address]
[2017-06-01 15:51] LABS: BILIRUBIN,URINE NEGATIVE (NEGATIVE); BLOOD, URINE NEGATIVE (NEGATIVE); CLARITY/URINE CLEAR (CLEAR); GLUCOSE,URINE NEGATIVE (NEGATIVE); KETONES,URINE NEGATIVE (NEGATIVE); LEUKOCYTE ESTERASE ,URINE NEGATIVE (NEGATIVE); NITRITE, URINE NEGATIVE (NEGATIVE); PH,URINE 7.5 (5.0-8.0); PROTEIN URINE NEGATIVE (NEGATIVE); UROBILINOGEN,URINE 0.2 (0.2-1.0)
[2017-06-01 15:52] LABS: COLOR,URINE STRAW (YELLOW)
[2017-06-01 15:59] LABS: BARBITURATE, URINE NEGATIVE (NEG <=200); BENZODIAZEPINE, URINE POSITIVE (NEG <=150); CANNABINOID, URINE POSITIVE (NEG <=50); COCAINE, URINE NEGATIVE (NEG <=150); METHAMPHETAMINES SCREEN,URINE NEGATIVE (NEG <=500); OPIATE, URINE NEGATIVE (NEG <=100); PHENCYCLIDINE SCREEN,URINE NEGATIVE (NEG <=25); UR TRICYCLIC ANTIDEPRESSANTS NEGATIVE (NEG <=300); URINE AMPHETAMINE NEGATIVE (NEG <=500); URINE METHADONE NEGATIVE (NEG <=200); URINE OXYCODONE SCREEN NEGATIVE (NEG <=100); URINE PROPOXYPHENE SCREEN NEGATIVE (NEG <=300)
== END 2017-06-01 14:10 | disposition home or self-care (01) ==
LOC: SED 11:44
DX: R56.9 Unspecified convulsions (principal); Z88.5 Allergy status to narcotic agent
CPT/HCPCS: 36415; 71010; 74000; 80053; 80307; 81003; 82140; 83605; 83880; 84439; 84484; 85025; 85610; 87040; 93005; 96374; 99285; G0482; J2060

== ENCOUNTER 2017-08-31 16:10 | Emergency (ER) | payer OTHER, MEDICAID ==
[~2017-08-31] VITALS: Ht 177.8 cm; Wt 66.7 kg
[2017-08-31 16:10] VITALS: BP_SYST 144
[~2017-08-31 16:10] MED LIST: ESLI400T PO; LEVE500T13 PO
[2017-08-31] MEDS ORDERED: LORazepam 2 MG/ML VIAL (FOR ER USE) IVP ONE (16:30)
[2017-08-31 17:03] LABS: BASOPHILS % (AUTO) 0.4 % (0.0-2.0); HEMATOCRIT 44.2 % (36-54); HEMOGLOBIN 14.5 g/dL (14.0-18.0); LYMPHOCYTES # (AUTO) 1.4 K/uL (1.0-5.5); LYMPHOCYTES % (AUTO) 11.2 % (20.5-51.5); MEAN CORPUSCULAR HEMOGLOBIN 31 pg (27-31); MEAN CORPUSCULAR HGB CONC 33 % (32-36); MEAN CORPUSCULAR VOLUME 95 fL (79.0-98.0); MONOCYTES # (AUTO) 0.4 K/uL (0.0-1.0); MONOCYTES % (AUTO) 3.4 % (1.7-9.3); NEUTROPHILS # (AUTO) 10.3 K/uL (1.8-7.7); PLATELET COUNT (AUTO) 227 K/uL (130-430); RED BLOOD CELL COUNT(AUTO) 4.65 MIL/uL (4.2-6.2); RED CELL DISTRIBUTION WIDTH 12.1 % (9.0-15.0); WHITE BLOOD COUNT (AUTO) 12.1 K/uL (4.8-10.8)
[2017-08-31 17:08] LABS: ANION GAP 10 (5-15); CALCIUM 9.6 mg/dL (8.4-11.0); CHLORIDE 101 mmol/L (98-107); GFR AFRICAN AMERICAN 119 mL/min (>90); GLUCOSE 100 mg/dL (70-99); POTASSIUM 3.5 mmol/L (3.5-5.1); PROTHROMBIN TIME 10.5 SECS (9.5-12.5); SODIUM SERUM 139 mmol/L (136-145); UREA NITROGEN, BLOOD 17 mg/dL (8-21)
[2017-08-31 17:17] LABS: ALANINE AMINOTRANSFERASE 20 U/L (12-78); ALBUMIN 4.9 g/dL (3.4-4.8); ASPARTATE AMINOTRANSFERASE 20 U/L (10-37); FREE T4 (FREE THYROXINE) 1.1 ng/dl (0.8-1.5); TOTAL BILIRUBIN 0.6 mg/dL (0.0-1.0)
[2017-08-31 17:18] LABS: ALCOHOL, BLOOD < 3 mg/dL (<10)
[2017-08-31] MEDS ORDERED: IBUPROFEN 800 MG TABLET PO ONE (17:45)
[2017-08-31] MEDS ORDERED: ONDANSETRON 4 MG ODT TAB PO ONE (18:00)
[2017-08-31 18:42] VITALS: BP_SYST 129
== END 2017-08-31 18:41 | disposition home or self-care (01) ==
LOC: SED 16:10
DX: R56.9 Unspecified convulsions (principal); R07.81 Pleurodynia; R51 Headache; R03.0 Elevated blood-pressure reading, without diagnosis of hypertension; Z88.5 Allergy status to narcotic agent
CPT/HCPCS: 36415; 70450; 71045; 72125; 74018; 80053; 82140; 83605; 83880; 84439; 84484; 85025; 85610; 87040; 96374; 99285; G0482; J2060; Q0162

== ENCOUNTER 2017-09-17 19:26 | Emergency (ER) | payer OTHER, MEDICAID ==
[~2017-09-17] VITALS: Ht 185.4 cm; Wt 81.6 kg
[2017-09-17 19:30] VITALS: BP_SYST 113
[2017-09-17] MEDS ORDERED: NACL 0.9% 1,000 ML IV ONE (19:45)
[2017-09-17 19:47] LABS: BASOPHILS # (AUTO) 0.1 K/uL (0.0-0.2); BASOPHILS % (AUTO) 0.7 % (0.0-2.0); EOSINOPHILS # (AUTO) 0.1 K/uL (0.0-0.4); EOSINOPHILS % (AUTO) 0.8 % (0.0-4.0); HEMATOCRIT 40.4 % (36-54); HEMOGLOBIN 13.6 g/dL (14.0-18.0); LYMPHOCYTES # (AUTO) 2.9 K/uL (1.0-5.5); LYMPHOCYTES % (AUTO) 30.8 % (20.5-51.5); MEAN CORPUSCULAR HEMOGLOBIN 32 pg (27-31); MEAN CORPUSCULAR HGB CONC 34 % (32-36); MEAN CORPUSCULAR VOLUME 96 fL (79.0-98.0); MONOCYTES # (AUTO) 0.6 K/uL (0.0-1.0); MONOCYTES % (AUTO) 6.7 % (1.7-9.3); NEUTROPHILS # (AUTO) 5.9 K/uL (1.8-7.7); PLATELET COUNT (AUTO) 228 K/uL (130-430); RED BLOOD CELL COUNT(AUTO) 4.21 MIL/uL (4.2-6.2); RED CELL DISTRIBUTION WIDTH 12.7 % (9.0-15.0); WHITE BLOOD COUNT (AUTO) 9.6 K/uL (4.8-10.8)
[2017-09-17 20:06] LABS: ANION GAP 7 (5-15); CALCIUM 9.3 mg/dL (8.4-11.0); CHLORIDE 104 mmol/L (98-107); CREATININE 0.97 mg/dL (0.55-1.30); GLUCOSE 88 mg/dL (70-99); POTASSIUM 3.5 mmol/L (3.5-5.1); SODIUM SERUM 140 mmol/L (136-145); UREA NITROGEN, BLOOD 11 mg/dL (8-21)
[2017-09-17 20:08] LABS: GFR AFRICAN AMERICAN 109 mL/min (>90)
[2017-09-17 20:10] LABS: ACETAMINOPHEN < 1 ug/mL (1-30)
[2017-09-17 20:12] LABS: ALANINE AMINOTRANSFERASE 17 U/L (12-78); ALBUMIN 4.3 g/dL (3.4-4.8); ASPARTATE AMINOTRANSFERASE 16 U/L (10-37); TOTAL BILIRUBIN 0.5 mg/dL (0.0-1.0)
[2017-09-17 20:13] LABS: ALCOHOL, BLOOD < 3 mg/dL (<10)
[2017-09-17] MEDS ORDERED: KETOROLAC TROMETHAMINE 30 MG VIAL IVP ONE (20:15)
[2017-09-17] MEDS ORDERED: levETIRAcetam 500 MG TABLET PO ONE (21:00)
[2017-09-17 21:53] VITALS: BP_SYST 120
== END 2017-09-17 21:53 | disposition home or self-care (01) ==
LOC: SED 19:26
DX: S32.048A Other fracture of fourth lumbar vertebra, initial encounter for closed fracture (principal); M54.2 Cervicalgia; R56.9 Unspecified convulsions; Z88.5 Allergy status to narcotic agent; W19.XXXA Unspecified fall, initial encounter; Y93.89 Activity, other specified; Y92.89 Other specified places as the place of occurrence of the external cause; Y99.8 Other external cause status
CPT/HCPCS: 36415; 70450; 74176; 80053; 85025; 93005; 96361; 96374; 99285; G0480; G0481; G0482; J1885; J7030